=== PATIENT | male | born 1945 | race Caucasian/White ===

== ENCOUNTER 2016-07-25 15:28 | Emergency (ER) | payer OTHER ==
[~2016-07-25] VITALS: Ht 175.3 cm; Wt 81.5 kg
[~2016-07-25 15:28] MED LIST: PRLSR20 PO; SALI1SPR3 NAE
[2016-07-25 15:32] VITALS: TEMP 36.7; Ht 175.3 cm; Wt 81.5 kg
--- NOTE | 2016-07-25 16:12 | EMERGENCY ROOM VISIT NOTE ---
ED Visit Note First contact with patient: 15:45 The patient was seen and examined with Michael Nolen PA-C. I agree with the history, physical and findings. Please see the note for disposition and details. The patient had a needle stick from a small bore insulin like needle. From the appearance of the needle and the location it seemed like it was very old. There is no fresh blood or any fluid within the needle or syringe. The PEP was contacted and did not recommend prophylaxis. We did discuss hepatitis screen and this was performed. The patient will call back later this evening for results. Return instructions were discussed.
[2016-07-25 16:32] VITALS: BP 133/87; PULSE 62; O2SAT 97
--- NOTE | 2016-08-04 15:34 | EMERGENCY ROOM VISIT NOTE ---
History First contact with patient: 15:45 Chief Complaint: NEEDLE STICK Stated Complaint: ACCIDENTAL PINCH,UNKNOWN HYPODEMIC NEEDLE History of Present Illness The patient is a 71 year old male who presents to the Emergency Room with complaints of a needle stick to his left fourth finger. The patient was breaking up mulch in his [employer] parking lot when he felt something sharp against his finger. The patient uncovered an insulin syringe. Because of concern for blood-borne infection, he presents to the emergency department for evaluation. Patient did cleanse the finger well. He denies any significant pain. The patient is pretty certain that his tetanus immunization is within about 7 years. Review of Systems 10 system review was performed and was negative except for pertinent positives and negatives as indicated in history of present illness Past Medical/Surgical History Medical Problems: (1) Gout Nos (2) Hyperlipidemia Nec/Nos (3) Prostate cancer Family History Unremarkable Social History Smoking Status: Never Smoker Alcohol Use: none Marital Status: Occupation Status: retired Current/Historical Medications Scheduled Omeprazole (Prilosec), 20 MG PO DAILY Allergies Coded Allergies: Sulfa Antibiotics (Unverified Allergy, Intermediate, RASH, 07/25/16) Physical Exam Vital Signs Date Time Temp Pulse Resp B/P Pulse Ox O2 Delivery O2 Flow Rate FiO2 07/25/16 16:32 62 133/87 97 07/25/16 15:32 36.7 63 20 144/61 95 Room Air Pain Rating (0-10): 0 Physical Exam CONSTITUTIONAL: Healthy and well nourished. Alert and oriented X 3 with positive affect. HEENT: Normocephalic, atraumatic. Pupils equal, round and reactive. NECK: Full active range of motion without discomfort. MUSCULOSKELETAL: Examination shows a small puncture wound to the left volar and ulnar aspect of the middle phalanx of the ring finger. No active bleeding noted. No worsening pain with flexion or extension of the finger. Capillary refill is less than 2 seconds. INTEGUMENTARY: No rash or other significant dermatologic conditions noted. NEUROLOGIC: Left fourth fingertip is sensory intact. Medical Decision & Procedures Laboratory Results Test 07/25/16 16:30 Hepatitis A IgM Antibody NON-REACTIVE (NON-REACTIVE) Hepatitis B Surface Antigen NEG (NEG) Hepatitis B Core IgM Antibody NON-REACTIVE (NON-REACTIVE) Hepatitis C Antibody NEG (NEG) ED Course Patient history and physical exam were performed. Nurse's notes were reviewed. Vital signs were reviewed and were normal. I did explain to the patient that since the syringe was under the mulch, I suspect that it has been there for a while. I therefore explained that his chance for transmission of blood-borne infection is negligible. I did discuss the possibility of possible malice with someone putting the syringe there recently. I also explained that this is a small needle with no obvious blood or contaminants within the syringe. The case was also discussed with attending physician, Dr. Beckford, who suggested contacting the PEP Hotline. At 1557, I spoke with Pillo who also agreed that there is no significant risk of blood-borne pathogen transmission. Did suggest that if there was any further concern that a hepatitis B surface antibody could be drawn. Otherwise he does not suggest any postexposure prophylaxis at this time. Further discussed this with Dr. Beckford, who recommended ordering a hepatitis panel. This was also discussed with the patient, and he was in agreement. The patient was encouraged to watch for any signs of wound infection. He was encouraged to follow-up with his PCP to discuss any further need. The patient was happy with plan of care, and voiced understanding of all discharge instructions. Impression Primary Impression: Needle stick left fourth finger Departure Information Dispostion Home / Self-Care Condition GOOD Forms HOME CARE DOCUMENTATION FORM, IMPORTANT VISIT INFORMATION Patient Instructions My [facility] Additional Instructions Watch area for any signs of infection. I will contact you later with test results. Contact your PCP to make certain that your tetanus immunization is up-to-date within 10 years.
== END 2016-07-25 16:33 | disposition home or self-care (01) ==
LOC: C.EDB 15:29 → C.EDD 16:33
DX: S61.235A Puncture wound without foreign body of left ring finger without damage to nail, initial encounter (principal); W46.0XXA Contact with hypodermic needle, initial encounter; Y92.096 Garden or yard of other non-institutional residence as the place of occurrence of the external cause; M10.9 Gout, unspecified; E78.5 Hyperlipidemia, unspecified; Z85.46 Personal history of malignant neoplasm of prostate; Z79.899 Other long term (current) drug therapy

== ENCOUNTER → 2016-09-14 | Outpatient (CLI) | payer OTHER ==
[~2016-09-14] MED LIST changes: -SALI1SPR3 NAE
== END | disposition home or self-care (01) ==
LOC: C.LABBC 07:36
PROVIDERS: ATTEND Urology
DX: R39.15 Urgency of urination (principal)

== ENCOUNTER → 2016-09-16 | Outpatient (CLI) | payer OTHER ==
[2015-09-17 14:26] VITALS: BP 135/67; PULSE 43
[2016-09-16 14:30] VITALS: BP 126/73; PULSE 48; TEMP 37.3; O2SAT 95
--- NOTE | 2016-09-16 15:21 | Radiation Oncology Follow-Up ---
Radiation Oncology Follow-Up Date of Visit Sep 16, 2016. Reason For Visit Annual follow-up Radiation Completion Date Cesium 131 seed implant on 02/16/13 Diagnosis (1) Prostate cancer Status: Resolved Onset Date: 10/05/2012 Location: both lobes of the prostate Histology Subtype: adenocarcinoma Stage: ll (B) Permanent Comment: Rising PSA pretreatment PSA 5.37 Status post ultrasound-guided biopsies, biopsy stage TIIc Salvador grade 3+3 and 3+4 Status post seed implant with cesium 131 on 02/16/2013 received 11,500 cGy Last Edited By: Brenda Alexander on Sep 12, 2014 16:20 Interim History He's been doing well from urinary standpoint he gave an AUA score of 5. Posterior score was 8. He completed expanded prostate cancer index composite for clinical practice and gave a score of 0 of 12 in urinary incontinence symptoms. He gave a score of 0 of 12 in urinary irritation symptoms. He gave a score of 0 12 and bowel symptoms. He gave a score of 7 of 12 and sexual symptoms. He gave a score of one of 12 and hormonal vitality symptoms. He stated in general he's doing well other than he does have fatigue. He states that he will work for approximately one hour then we'll need to have a 10 minute break. He denies shortness of breath or chest pain. He just becomes fatigued. He is seeing his primary care physician far implants discussed this with him. He did have a recheck PSA performed 09/14/2016. This was 0.243. Allergies Coded Allergies: Sulfa Antibiotics (Unverified Allergy, Intermediate, RASH, 07/25/16) Home Medications Scheduled Omeprazole (Prilosec), 20 MG PO DAILY Review of Systems Gastrointestinal: Symptoms: WNL GI Comments: No fiber supplements Oral: Symptoms: No Problems Respiratory: Symptoms: WNL Other Respiratory: cough due to acid reflux Urinary: Symptoms: WNL Comments: 3 voids/night which is sl. more than prior to RT; Skin: Symptoms: No Problems Physical Exam Vital Signs Date Time Temp Pulse Resp B/P (MAP) Pulse Ox O2 Delivery O2 Flow Rate FiO2 09/16/16 14:30 37.3 48 16 126/73 95 Fatigue: None General Appearance: no apparent distress Eyes: normal inspection, EOMI ENT: normal ENT inspection, hearing grossly normal Neck: no adenopathy, thyroid normal Respiratory/Chest: lungs clear, no respiratory distress, no accessory muscle use Cardiovascular: regular rate, rhythm, no gallop, no murmur Abdomen: non tender, soft, no organomegaly Anal / Rectum: Normal sphincter tone. Internal hemorrhoids. No rectal masses no rectal bleeding. Prostate is flat and consistent with a seed implant. Extremities: no pedal edema Neurologic/Psychiatric: no motor/sensory deficits, alert, normal mood/affect Skin: warm/dry Lymphatic: no adenopathy Laboratory Studies Test 07/25/16 16:30 09/14/16 07:40 Hepatitis A IgM Antibody NON-REACTIVE (NON-REACTIVE) Hepatitis B Surface Antigen NEG (NEG) Hepatitis B Core IgM Antibody NON-REACTIVE (NON-REACTIVE) Hepatitis C Antibody NEG (NEG) Prostate Specific Antigen 0.243 ng/ml (0.000-4.000) Assessment & Plan Plan: Continue recheck PSAs. He'll be seeing Dr. Yu in [address] Miller tomorrow for his yearly examination. He is going to discuss with him the issue he has with fatigue. We reviewed a log of his PSAs. A copy of that document was given to him. We asked him to return to our office in 1 year. We discussed that after that visit we'll plan to discharge him and he can follow on an annual basis with Dr. Yu. He was in agreement with this plan of follow-up. Total Time In Follow-Up I spent 20 minutes speaking to the patient and performing examination. I said 15 minutes reviewing information in completing this note. Copy To Pedro Yu MD, Urology; Bryon Miller M.D.
== END | disposition home or self-care (01) ==
LOC: C.ONC 14:20
PROVIDERS: ATTEND Physician Assistant Medical
DX: Z08 Encounter for follow-up examination after completed treatment for malignant neoplasm (principal); Z92.3 Personal history of irradiation; Z85.46 Personal history of malignant neoplasm of prostate

== ENCOUNTER → 2016-09-21 | Outpatient (CLI) | payer OTHER ==
[2016-09-21 11:19] LABS: BASO % 0.4 %; BASO ABS # 0.03 K/uL (0-0.2); COMPLETE YES; EOS % 4.9 %; HEMATOCRIT 43.5 % (42-52); IG% 0.3 %; LYMPH % 31.2 %; LYMPH ABS # 2.48 K/uL (1.2-3.4); MEAN CELL VOLUME 90.8 fL (80-100); MEAN CORPUSCULAR HEMOGLOBIN 31.7 pg (25-34); MEAN CORPUSCULAR HGB CONC 34.9 g/dl (32-36); MEAN PLATELET VOLUME 10.5 fL (7.4-10.4); MONO % 7.4 %; NEUT % 55.8 %; PLATELET COUNT 228 K/uL (130-400); RED BLOOD COUNT 4.79 M/uL (4.7-6.1); WHITE BLOOD COUNT 7.95 K/uL (4.8-10.8)
[2016-09-21 11:34] LABS: ESTIMATED AVERAGE GLUCOSE 97 mg/dl; HA1C FLAG Normal (Normal)
[2016-09-21 11:36] LABS: ALT/SGPT 36 U/L (12-78); BLOOD UREA NITROGEN 16 mg/dl (7-18); BUN/CREATININE RATIO 16.1 (10-20); CALCIUM 8.4 mg/dl (8.5-10.1); CARBON DIOXIDE 28 mmol/L (21-32); CHLORIDE 107 mmol/L (98-107); CHOLESTEROL 208 mg/dl (0-200); GLUCOSE 92 mg/dl (70-99); POTASSIUM 4.3 mmol/L (3.5-5.1); SODIUM 141 mmol/L (136-145); TRIGLYCERIDES 106 mg/dl (0-150); VERY LOW DENSITY LIPOPROT CALC 21 mg/dl
[2016-09-21 11:46] LABS: ALB/GLOB RATIO 1.3 (0.9-2); ALKALINE PHOSPHATASE 48 U/L (45-117); AST/SGOT 22 U/L (15-37); CHOLESTEROL/HDL RATIO 4.2; HDL CHOLESTEROL 50 mg/dl; LDL CHOLESTEROL CALCULATED 137 mg/dl; TOTAL IRON BINDING CAPACITY 241 mcg/dl (250-450); URIC ACID 4.6 mg/dl (2.6-7.2)
== END | disposition home or self-care (01) ==
LOC: C.LABBC 07:19
PROVIDERS: ATTEND Family Medicine
DX: R73.09 Other abnormal glucose (principal); E55.9 Vitamin D deficiency, unspecified; D51.9 Vitamin B12 deficiency anemia, unspecified; E78.9 Disorder of lipoprotein metabolism, unspecified; R53.83 Other fatigue

== ENCOUNTER → 2016-10-13 | Outpatient (CLI) | payer OTHER ==
[2016-10-13 11:03] LABS: HEMATOCRIT 44.1 % (42-52); MEAN CELL VOLUME 90.7 fL (80-100); MEAN CORPUSCULAR HEMOGLOBIN 31.3 pg (25-34); MEAN CORPUSCULAR HGB CONC 34.5 g/dl (32-36); MEAN PLATELET VOLUME 10.2 fL (7.4-10.4); PLATELET COUNT 221 K/uL (130-400); RED BLOOD COUNT 4.86 M/uL (4.7-6.1); WHITE BLOOD COUNT 8.28 K/uL (4.8-10.8)
--- NOTE | 2016-11-12 08:50 | CODING QUERY MEDICAL NECESSITY ---
CQSUPPORTING DIAGNOSIS NEEDED A supporting diagnosis is required for the test/procedure performed on this patient in order for us to be reimbursed by the patient's insurance. Please provide a supporting diagnosis for the following test/procedure listed below next to the test name along with your signature. *If there is no additional diagnosis for this patient that would support the following test/procedure please document that below next to the test/procedure. Test(s)/Procedure(s) that require a supporting diagnosis: DOS 10/13/16 VITAMIN B12 TEST Provider Signature: Date: Thank you Savita Patterson Health Information Management Once completed, please kindly fax back to [phone] For questions please call [phone]
== END | disposition home or self-care (01) ==
LOC: C.LABBC 07:40
PROVIDERS: ATTEND Family Medicine
DX: D64.9 Anemia, unspecified (principal); E53.8 Deficiency of other specified B group vitamins

== ENCOUNTER → 2017-03-31 | Outpatient (CLI) | payer OTHER ==
[~2017-03-31] MED LIST changes: +COEN100C7 PO; +CYAN100073 PO; +SAW160CA5 PO
[2017-03-31 11:24] LABS: BLOOD UREA NITROGEN 18 mg/dl (7-18); CREATININE 0.99 mg/dl (0.60-1.40)
== END | disposition home or self-care (01) ==
LOC: C.LABBC 07:44
PROVIDERS: ATTEND Urology
DX: R97.20 Elevated prostate specific antigen [PSA] (principal); C61 Malignant neoplasm of prostate; R35.1 Nocturia